=== PATIENT | female | born 1975 | race Hispanic/Latino ===

== ENCOUNTER 2020-10-28 05:18 | Emergency (ER) | payer OTHER ==
[~2020-10-28] VITALS: Ht 154.9 cm; Wt 117.0 kg
[2020-10-28 05:51] VITALS: BP 137/56
== END 2020-10-28 06:02 | disposition home or self-care (01) ==
LOC: EDH 05:44
DX: T16.2XXA Foreign body in left ear, initial encounter (principal); X58.XXXA Exposure to other specified factors, initial encounter; Y93.89 Activity, other specified; Y92.89 Other specified places as the place of occurrence of the external cause; Y99.8 Other external cause status
CPT/HCPCS: 69200